=== PATIENT | female | born 1970 | race Caucasian/White ===

== ENCOUNTER 2018-04-23 13:36 | Outpatient (CLI) | payer BC | END 2018-04-23 13:37 | disposition home or self-care (01) | LOC: BICMAMMO 13:36 | PROVIDERS: ATTEND Obstetrics & Gynecology | DX: Z12.31 Encounter for screening mammogram for malignant neoplasm of breast (principal) | CPT/HCPCS: 77063; 77067 ==

== ENCOUNTER 2021-07-18 12:59 | Outpatient (CLI) | payer BC | END 2021-07-18 13:00 | disposition home or self-care (01) | LOC: BICMAMMO 12:59 | PROVIDERS: ATTEND Obstetrics & Gynecology | DX: Z12.31 Encounter for screening mammogram for malignant neoplasm of breast (principal) | CPT/HCPCS: 77063; 77067 ==

== ENCOUNTER 2023-10-03 07:16 | Emergency (ER) | payer BC, OTHER ==
[2023-10-03] MEDS ORDERED: Ketorolac Tromethamine 30 MG (1 mL) VIAL ONE (07:45)
[2023-10-03] MEDS ORDERED: Morphine 4 MG/ML VIAL ONE (09:20)
[2023-10-03] MEDS ORDERED: Ondansetron PF 4 MG/2 ML Vial ONE (09:46)
== END 2023-10-03 11:08 | disposition home or self-care (01) ==
LOC: ERS 07:16
DX: S22.079A Unspecified fracture of T9-T10 vertebra, initial encounter for closed fracture (principal); I10 Essential (primary) hypertension; E03.9 Hypothyroidism, unspecified; Z79.899 Other long term (current) drug therapy; W01.0XXA Fall on same level from slipping, tripping and stumbling without subsequent striking against object, initial encounter
CPT/HCPCS: 72128; 72131; 96372; 96374; J1885; J2270; J2405

== ENCOUNTER 2023-11-06 07:54 | Outpatient (CLI) | payer OTHER | END 2023-11-06 07:55 | disposition home or self-care (01) | LOC: BICMAMMO 07:54 | PROVIDERS: ATTEND Emergency Medicine | DX: Z13.820 Encounter for screening for osteoporosis (principal); S22.079A Unspecified fracture of T9-T10 vertebra, initial encounter for closed fracture; M85.88 Other specified disorders of bone density and structure, other site | CPT/HCPCS: 77080 ==

== ENCOUNTER 2025-02-12 09:05 | Emergency (ER) | payer SELFPAY ==
[2025-02-12] MEDS ORDERED: Cyclobenzaprine 10 MG TAB ONE (11:13)
== END 2025-02-12 11:50 | disposition home or self-care (01) ==
LOC: ERS 09:05
DX: M79.18 Myalgia, other site (principal); I10 Essential (primary) hypertension; E03.9 Hypothyroidism, unspecified; E78.5 Hyperlipidemia, unspecified; Z79.899 Other long term (current) drug therapy; Z79.890 Hormone replacement therapy
CPT/HCPCS: 71046; 87081; 87428; 87430